=== PATIENT | female | born 1990 | race Caucasian/White ===

== ENCOUNTER 2018-04-02 23:37 | Emergency (ER) | payer SELFPAY, OTHER | END 2018-04-03 02:24 | disposition left against medical advice (07) | LOC: FTE 23:37 | DX: Z53.21 Procedure and treatment not carried out due to patient leaving prior to being seen by health care provider (principal) ==

== ENCOUNTER 2018-12-06 14:04 | Emergency (ER) | payer OTHER ==
[2018-12-06] MEDS: LORAZEPAM 1 MG TAB PO (15:19)
== END 2018-12-06 15:55 | disposition home or self-care (01) ==
LOC: FTE 14:04
DX: S05.11XA Contusion of eyeball and orbital tissues, right eye, initial encounter (principal); Y04.8XXA Assault by other bodily force, initial encounter; Y92.89 Other specified places as the place of occurrence of the external cause
CPT/HCPCS: 99283; Z7502